=== PATIENT | female | born 1980 | race Caucasian/White ===

== ENCOUNTER → 2018-11-22 | Outpatient (CLI) | payer BC ==
[~2018-11-22] MED LIST: SUDAFED60 MG PO; TRI-LEGEST FE 21 TAB PO
== END ==
LOC: COL.RAD 08:27
DX: D86.9 Sarcoidosis, unspecified (principal); R59.0 Localized enlarged lymph nodes; F45.8 Other somatoform disorders; Z79.899 Other long term (current) drug therapy; Z85.820 Personal history of malignant melanoma of skin
CPT/HCPCS: Q9967